=== PATIENT | female | born 1955 | race Caucasian/White ===

== ENCOUNTER 2018-09-03 09:19 | Emergency (ER) | payer MEDICARE ==
[~2018-09-03] VITALS: Ht 167.6 cm; Wt 65.3 kg
[2018-09-03] MEDS ORDERED: SODIUM CHLORIDE FLUSH 10ML SYR IVF ONE (10:00)
[2018-09-03 10:42] LABS: BASOPHILS % (AUTO) 0 % (0-1); EOSINOPHILS # (AUTO) 0.05 x10^3/uL (0-0.4); EOSINOPHILS % (AUTO) 0 % (1-7); LYMPHOCYTES # (AUTO) 1.08 x10^3/uL (1-3.4); LYMPHOCYTES % (AUTO) 8 % (22-44); MD NO; MEAN CORPUSCULAR HEMOGLOBIN 31.8 pg (27.0-34.8); MEAN CORPUSCULAR VOLUME 93.6 fL (80-100); MEAN PLATELET VOLUME 8.6 fL (7.4-10.4); MONOCYTES # (AUTO) 0.99 x10^3/uL (0.2-0.8); MONOCYTES % (AUTO) 7 % (2-9); NEUTROPHILS # (AUTO) 11.88 x10^3/uL (1.8-6.8); NEUTROPHILS % (AUTO) 85 % (42-75); PLATELET COUNT 278 x10^3/uL (130-400); RED BLOOD COUNT 4.57 x10^6/uL (3.82-5.3); RED CELL DISTRIBUTION WIDTH 12.5 % (9.6-15.2)
[2018-09-03 10:44] LABS: MICROSCOPIC AUTO
[2018-09-03 10:49] LABS: ALANINE AMINOTRANSFERASE 18 U/L (12-78); ALBUMIN 4.3 g/dL (3.4-5.0); ANION GAP 8 mmol/L (5-15); CALCIUM 9.5 mg/dL (8.5-10.1); CHLORIDE 101 mmol/L (98-107)
[2018-09-03 10:52] LABS: ALKALINE PHOSPHATASE 110 U/L (45-117); BILIRUBIN,TOTAL 1.2 mg/dL (0.2-1.0); CREATININE 0.88 mg/dL (0.55-1.02); TOTAL PROTEIN 8.5 g/dL (6.4-8.2)
[2018-09-03 10:57] LABS: CULTURE INDICATED? YES
--- NOTE | 2018-09-03 11:55 | NUR ---
REPORT RECEIVED FROM PAUL BOLTON AT BEDSIDE. PT A&O, RESPS EVEN AND UNLABORED. PT DENIES PAIN AT THIS TIME. AWAITING CT SCAN AND DISPO AT THIS TIME.
--- NOTE | 2018-09-03 11:59 | NUR ---
LABS REVIEWED WITH ROSITA MI, INCLUDING WBC 14 AND UA RESULTS. NO ORDERS RECEIVED AT THIS TIME.
[2018-09-03 14:05] VITALS: BP 129/77
--- NOTE | 2018-09-03 14:05 | NUR ---
PT GIVEN DC INSTRUCTIONS AND SCRIPT. PT A&O, RESPS EVEN AND UNLABORED. PT EDUCATED REGARDING HYDROCODONE RX, AND OMNICEF RX. PT AMB TO DC DESK WITH STEADY GAIT, ACCOMANIED BY , NO COMPLAINT AT DC.
== END 2018-09-03 14:06 | disposition home or self-care (01) ==
LOC: ED 10:37
DX: N30.00 Acute cystitis without hematuria (principal); K40.90 Unilateral inguinal hernia, without obstruction or gangrene, not specified as recurrent; R10.32 Left lower quadrant pain; R10.31 Right lower quadrant pain; J45.909 Unspecified asthma, uncomplicated
CPT/HCPCS: 36415; 72193; 80053; 81001; 83605; 83690; 85025; 87086; 99284